=== PATIENT | female | born 1965 | race Caucasian/White ===

== ENCOUNTER 2018-04-07 06:46 | Observation (INO) | payer MEDICAID ==
[2018-04-03 11:53] LABS: BASOPHIL % 0.1 % (0-2); PLATELET COUNT 159 x10^3mcL (130-400); RED CELL DISTRIBUTION WIDTH 13.6 % (11.5-14.5)
[2018-04-03 12:50] LABS: ALBUMIN 3.6 g/dL (3.4-5.0); ALKALINE PHOSPHATASE 98 U/L (46-116); ALT/SGPT 35 U/L (14-59); AST/SGOT 20 U/L (15-37); BILIRUBIN TOTAL 0.23 mg/dL (0.20-1.00); CALCIUM 9.2 mg/dL (8.5-10.1); CARBON DIOXIDE 29.5 mmol/L (21-32); CHLORIDE SERUM 103 mmol/L (98-107); CREATININE SERUM 0.6 mg/dL (0.6-1.0); GFR1 > 60 mL/min; GLUCOSE SERUM 103 mg/dL (74-106); POTASSIUM SERUM 4.7 mmol/L (3.5-5.1); SODIUM SERUM 138 mmol/L (136-145); TOTAL PROTEIN, SERUM 7.4 g/dL (6.4-8.2)
[~2018-04-07] VITALS: Ht 172.7 cm; Wt 74.8 kg
[2018-04-07 07:15] VITALS: BP 138/93
--- NOTE | 2018-04-07 16:00 | NUR ---
ADMITTED TRANSFER FR.OR.S/P R SIMPLE MASTECTOMY W/ SENTINEL DX.NODE BX AND L PROPHYLACTIC MASTECTOMY.ALSO MEDIPORT REMOVED.AAO X4.DENIES ANY PAIN AT THE MOMENT.LUNGS CLEAR.BILAT BREAST WITH DRESSING CDI.WRAPPED WITH ABDOMINAL BINDER.[address] DRAINING SEROUS FLUID.CALL LIGHT WITHIN REACH.INSTRUCTED TO CALL FOR ANY PAIN/DISCOMFORT.WILL CONTINUE TO MONITOR PT.
[2018-04-07 16:24] VITALS: BP 147/86
--- NOTE | 2018-04-07 16:43 | NUR ---
RECEIVED PT FROM OR. PT ADMIT FOR RIGHT BREAST CA. S/P BRYCE MASTECTOMY, PT IS A/O X4, VERBAL RESPONSIVE, DENY ANY HEADACHE OF DIZZINESS, LUNG SOUND CLEAR BILATERAL, NO COUGH, NO SOB. PT DENY ANY CHEST PAIN AT THIS MOMENT. BOWEL SOUND PRESENT ALL 4 QUADRANTS, NO DISTENTION, NO TENDER. PEDAL PULSE PRESENT BOTH FEET, NO EDEMA, IV AT LEFT AC, NO LEAKING, NO INFILTRATION. S/P BRYCE MASTECTOMY AT CHEST, COVER WITH DRY DRESSING, AND BINDER. THERE ARE 4 KATHI DRAINAGE. AT LEFT UPPER CHEST, THERE IS S/P PORT A CATH SITE. 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 ALL ADLS ASSIST, ALL NEED MET, CALL LIGHT IN REACH, WILL CONTINUE TO MONITOR.
[2018-04-07 17:00] VITALS: BP 139/80
--- NOTE | 2018-04-07 18:40 | NUR ---
NO SIGNIFICANT CHANGE NOTED.WILL ENDORSE TO NEXT SHIFT.
--- NOTE | 2018-04-07 20:00 | NUR ---
PT IN BED AAO X4 VERBAL S/P BILAT MASTECTOMY, WITH INTACT BINDER TO THE CHEST NO S/SX OF BLEEDING, KATHI DRAINAGE X4 WITH DARK RED DRAINAGE, PT DENIES PAIN, MARKED KATHI DRAINS ACCORDINGLY, IVF NS INFUSING @ 50CC/HR IV ACCESS LAC PATENT NON INFIL, SCD'S FOR DVT PROPHYLAXIS, SHIFT ASSESSMENT DONE, ATTENDED NEEDS CALL LIGHT AT REACH, WILL CONT TO MONITOR AND PROCEED TO CURRENT PLAN OF CARE.
[2018-04-07 21:05] VITALS: BP 138/80
[2018-04-07 21:19] VITALS: BP 137/80
--- NOTE | 2018-04-07 22:06 | NUR ---
PT C/O NAUSEA AND VOMITING, ZOFRAN IV GIVEN PER PRN ORDER, ALSO C/O SURG INCISION PAIN 6/10 PER ASSESSMENT V/S STABLE, MORPHINE 2MG IVP GIVEN PER PRN ORDER, CONT TO MONITOR.
--- NOTE | 2018-04-08 04:30 | NUR ---
MORPHINE 2MG IVP GIVEN FOR SURG INCISION PAIN 6/10 PER ASSESSMENT, CONT TO MONITOR.
[2018-04-08 06:10] VITALS: BP 133/70
--- NOTE | 2018-04-08 06:35 | NUR ---
EMPTIED KATHI DRAINAGE, #1 2OCC OUTPUT, #2 10CC OUTPUT, #3 25CC OUTPUT #4 20CC OUTPUT, INTACT DRESSING AND BINDER AT SURG INCISION SITE, PT ASLEEP AFTER MORPHINE IVP, LAST DOSE OF ATB ANCEF COMPLETED, WILL CONT TO MONITOR.
--- NOTE | 2018-04-08 07:20 | NUR ---
AAO X4.DENIES ANY PAIN/DISCOMFORT AT THE MOMENT.JUST HAD PAIN MED AT 0430.LUNGS CLEAR.BILAT BREAST WITH DRESSING CDI,WRAPPED IN ABDOMINAL BINDER.4 KATHI DRAIN DRAINING SEROUS FLUID.S/P BILAT MASTECTOMY.CALL LIGHT WITHIN REACH.INSTRUCTED TO CALL FOR ANY PAIN/DISCOMFORT.WILL CONTINUE TO MONITOR PT.
[2018-04-08 09:36] VITALS: BP 160/101
--- NOTE | 2018-04-08 10:15 | NUR ---
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
--- NOTE | 2018-04-08 13:00 | NUR ---
FIRST DRESSING NOT CHANGED BY DR. DIMPLE CARR.
--- NOTE | 2018-04-08 13:00 | NUR ---
DR.ANTHONY CARR CAME TO SEE PT. PER PT WILL GO HOME TODAY.WILL NEED TO INSTRUCT PT AND FAMILY HOW TO EMPTY KATHI DRAIN.ALSO WILL FOLLOW-UP WITH HIM AND THE BIOPSY.
[2018-04-08 13:21] VITALS: BP 160/101
[2018-04-08 13:39] VITALS: BP 140/79
[2018-04-08 13:44] VITALS: BP 140/79
--- NOTE | 2018-04-08 14:44 | NUR ---
FAMILY AT BEDSIDE INSTRUCTED THEM HOW TO EMPTY 4 KATHI DRAIN AND RECORD IT.PT AND FAMILY VERBALIZES UNDRESTANDING.IV D/C'D.WENT DOWN VIA WHEELCHAIR ACCOMPANIED BY FAMILY AND BOX OFFICE ATTENDANT.
--- NOTE | 2018-04-08 14:56 | NUR ---
KATHI #1 EMPTIED 60ML,KATHI#2 EMPTIED-10 ML.KATHI # 3 EMPTIED 30 ML,KATHI #4 EMPTIED=5 ML SEROUSANGUINOUS FLUID.DAUGHTER ALSO RECORDED THE KATHI OUTPUT.
== END 2018-04-08 15:00 | disposition home or self-care (01) | DRG 362 ==
LOC: DS 06:46 → EDSTATUS 09:00 → DS 09:00 → NM 09:00 → DU 16:07 → MU 16:07
PROVIDERS: ADMIT Surgery
PROC: 0HTV0ZZ Resection of Bilateral Breast, Open Approach (ICD-10-PCS; principal; 2018-04-07 12:00)
PROC: 05PY33Z Removal of Infusion Device from Upper Vein, Percutaneous Approach (ICD-10-PCS; principal; 2018-04-07 12:00)
PROC: 07B50ZZ Excision of Right Axillary Lymphatic, Open Approach (ICD-10-PCS; principal; 2018-04-07 12:00)
DX: C50.911 Malignant neoplasm of unspecified site of right female breast (principal); C77.3 Secondary and unspecified malignant neoplasm of axilla and upper limb lymph nodes; Z40.01 Encounter for prophylactic removal of breast; Z92.21 Personal history of antineoplastic chemotherapy; Z80.0 Family history of malignant neoplasm of digestive organs
CPT/HCPCS: G0378; J0690; J1650; J2175; J2250; J2270; J2405; J2704; J3010; J3490; J7030; J7120; Q9968